=== PATIENT | female | born 1975 | race American Indian/Alaskan Native ===

== ENCOUNTER 2018-10-20 23:18 | Emergency (ER) | payer SELFPAY ==
[2018-10-20] MEDS ORDERED: ASPIRIN PO ONE (23:25)
[2018-10-20] MEDS ORDERED: MORPHINE IV ONE (23:49)
[2018-10-20] MEDS ORDERED: ZOFRAN IV ONE (23:49)
[2018-10-20 23:52] LABS: Basophils # (Auto) 0.2 K/mm3 (0.0-0.1); Eosinophils # (Auto) 0.2 K/mm3 (0.0-0.4); Eosinophils % (Auto) 1.5 % (0.0-4.3); Lymphocytes # (Auto) 3.9 K/mm3 (1.2-5.4); Mean Corpuscular HGB Conc 28 % (30-34); Monocytes # (Auto) 0.9 K/mm3 (0.0-0.8); Monocytes % (Auto) 6.2 % (0.0-7.3); Platelet Count 685 K/mm3 (140-440); Red Blood Count 4.44 M/mm3 (3.65-5.03)
[2018-10-20 23:53] LABS: Hematocrit 26.9 % (30.3-42.9); Hemoglobin 7.5 gm/dl (10.1-14.3); Mean Corpuscular Volume 61 fl (79-97)
[2018-10-20 23:55] LABS: BUN/Creatinine Ratio 14; Blood Urea Nitrogen 10 mg/dL (7-17); Calcium 9.2 mg/dL (8.4-10.2); Hemolysis Index 2
[2018-10-21] MEDS ORDERED: VASOTEC IV ONE (00:03)
--- NOTE | 2018-10-21 00:41 | XRay Report ---
CHEST 1 VIEW 11:32 PM INDICATION / CLINICAL INFORMATION: Chest Pain. COMPARISON: None available. FINDINGS: SUPPORT DEVICES: None. HEART / MEDIASTINUM: The heart size and pulmonary vasculature are normal. The aorta is normal in chand[place] abdulkadir. LUNGS / PLEURA: No significant pulmonary or pleural abnormality. No pneumothorax. ADDITIONAL FINDINGS: No significant additional findings. IMPRESSION: No acute findings. Signer Name: Obi Santos MD Signed: 10/21/2018 12:37 AM Workstation Name: [id number]
[2018-10-21] MEDS ORDERED: NORCO 5/325 PO ONE (02:06)
[2018-10-21] MEDS ORDERED: NORMODYNE IV ONE (02:07)
[2018-10-21] MEDS ORDERED: APRESOLINE IV ONE (02:26)
--- NOTE | 2018-10-21 04:41 | Emergency Department Report ---
ED Chest Pain HPI - General Chief Complaint: Chest Pain Stated Complaint: CHEST PAIN,RIGHT ARM HURTS Time Seen by Provider: 10/20/18 23:48 Source: patient Mode of arrival: Ambulatory Limitations: No Limitations - History of Present Illness Initial Comments: presents to er with mid chest pain, sharp, 3/10 for the past two days. h/o htn, chf, states bp has been running high. no sob, or diaphoresis. no exacerbating or alleviating factors. MD Complaint: chest pain -: Gradual Severity scale (0 -10): 10 - Related Data Home Medications Medication Instructions Recorded Confirmed Last Taken Albuterol Sulfate [Ventolin HFA] 2 puff IH Q4H PRN 02/28/15 02/28/15 Unknown Fluticasone (Nf) [Flovent 220 2 puff IH BID 02/28/15 02/28/15 Unknown MCG/PUFF HFA] Furosemide [Lasix TAB] 20 mg PO QDAY 02/28/15 02/28/15 Unknown clonazePAM [KlonoPIN] 2 mg PO QHS PRN 02/28/15 02/28/15 Unknown Previous Rx's Medication Instructions Recorded Last Taken Type Aspirin [Aspirin BABY CHEW TAB] 81 mg PO QDAY #30 tab.chew 03/01/15 Unknown Rx Carvedilol [Coreg] 6.25 mg PO BID #60 tablet 03/01/15 Unknown Rx Valsartan [Diovan] 80 mg PO BID #60 tablet 03/01/15 Unknown Rx amLODIPine [Norvasc] 10 mg PO QDAY #30 tablet 03/01/15 Unknown Rx Cyclobenzaprine [Flexeril] 10 mg PO QHS PRN #10 tablet 03/08/18 Unknown Rx Ibuprofen [Motrin] 600 mg PO Q8H PRN #20 tablet 03/08/18 Unknown Rx Allergies Allergy/AdvReac Type Severity Reaction Status Date / Time morphine Allergy Itching Verified 10/21/18 00:17 propoxyphene napsylate Allergy Shortness Verified 09/30/15 19:25 [From Darvocet-N 100] of Breath Heart Score - HEART Score History: Slightly suspicious EKG: Non-specific Age: < 45 Risk factors: > 3 risk factors or hx of atherosclerotic disease Troponin: < normal limit HEART Score: 3 ED Review of Systems ROS: Stated complaint: CHEST PAIN,RIGHT ARM HURTS Other details as noted in HPI Comment: All other systems reviewed and negative Respiratory: denies: cough, orthopnea Cardiovascular: chest pain Gastrointestinal: denies: abdominal pain, nausea, vomiting ED Past Medical Hx - Past Medical History Previous Medical History?: Yes Hx Hypertension: Yes Hx CVA: No Hx Heart Attack/AMI: Yes Hx Congestive Heart Failure: Yes (cardiomyopathy with EF of 30-35%) Hx Diabetes: No Hx Deep Vein Thrombosis: No Hx Pulmonary Embolism: No Hx GERD: Yes Hx Liver Disease: No Hx Renal Disease: No Hx Sickle Cell Disease: No Hx Arthritis: Yes (B/L knees) Hx Headaches / Migraines: Yes Hx Seizures: No Hx Kidney Stones: No Hx Psychiatric Treatment: No Hx Asthma: No Hx COPD: No Hx Tuberculosis: No Hx Dementia: No Hx HIV: No Additional medical history: Hypothyroidism,ANEMIA. heart irregular - Surgical History Past Surgical History?: Yes Hx Coronary Stent: No Hx Open Heart Surgery: No Hx Pacemaker: No Hx Internal Defibrillator: No Hx Cholecystectomy: Yes Hx Appendectomy: No Hx Breast Surgery: No Additional Surgical History: x 4 - Social History Smoking Status: Never Smoker Substance Use Type: None - Medications Home Medications: Home Medications Medication Instructions Recorded Confirmed Last Taken Type Albuterol Sulfate [Ventolin HFA] 2 puff IH Q4H PRN 02/28/15 02/28/15 Unknown History Fluticasone (Nf) [Flovent 220 2 puff IH BID 02/28/15 02/28/15 Unknown History MCG/PUFF HFA] Furosemide [Lasix TAB] 20 mg PO QDAY 02/28/15 02/28/15 Unknown History clonazePAM [KlonoPIN] 2 mg PO QHS PRN 02/28/15 02/28/15 Unknown History Aspirin [Aspirin BABY CHEW TAB] 81 mg PO QDAY #30 tab.chew 03/01/15 Unknown Rx Carvedilol [Coreg] 6.25 mg PO BID #60 tablet 03/01/15 Unknown Rx Valsartan [Diovan] 80 mg PO BID #60 tablet 03/01/15 Unknown Rx amLODIPine [Norvasc] 10 mg PO QDAY #30 tablet 03/01/15 Unknown Rx Cyclobenzaprine [Flexeril] 10 mg PO QHS PRN #10 tablet 03/08/18 Unknown Rx Ibuprofen [Motrin] 600 mg PO Q8H PRN #20 tablet 03/08/18 Unknown Rx ED Physical Exam - General Limitations: No Limitations General appearance: alert, in no apparent distress - Head Head exam: Present: atraumatic, normocephalic - Eye Eye exam: Present: normal appearance, PERRL, EOMI Pupils: Present: normal accommodation - ENT ENT exam: Present: normal exam, normal orophraynx - Neck Neck exam: Present: normal inspection - Respiratory Respiratory exam: Present: normal lung sounds bilaterally - Cardiovascular Cardiovascular Exam: Present: regular rate, normal rhythm - GI/Abdominal GI/Abdominal exam: Present: soft, normal bowel sounds - Back Exam Back exam: Present: normal inspection - Psychiatric Psychiatric exam: Present: normal affect - Skin Skin exam: Present: warm ED Course Vital Signs 10/20/18 10/21/18 10/21/18 23:57 00:51 01:00 Temperature 98.1 F Pulse Rate 88 78 78 Respiratory 13 15 Rate Blood Pressure 187/101 181/95 Blood Pressure 205/113 [Left] O2 Sat by Pulse 99 99 Oximetry 10/21/18 10/21/18 10/21/18 02:07 02:10 02:13 Temperature Pulse Rate 84 84 Respiratory 14 16 Rate Blood Pressure 185/107 Blood Pressure 185/107 [Left] O2 Sat by Pulse 98 Oximetry 10/21/18 10/21/18 10/21/18 02:32 03:10 05:03 Temperature 98.1 F Pulse Rate 79 83 Respiratory 16 16 Rate Blood Pressure 161/91 Blood Pressure 153/84 [Left] O2 Sat by Pulse 98 Oximetry GARY score - Gary Score Age > 65: (0) No Aspirin use within the Past 7 Days: (1) Yes 3 or more CAD Risk Factors: (1) Yes 2 or more Angina events in past 24 hrs: (1) Yes Known CAD with more than 50% Stenosis: (0) No Elevated Cardiac Markers: (0) No ST Deviation Greater than 0.5mm: (0) No GARY Score: 3 ED Medical Decision Making - Lab Data Result diagrams: 10/20/18 23:29 10/20/18 23:29 Critical care attestation.: If time is entered above; I have spent that time in minutes in the direct care of this critically ill patient, excluding procedure time. ED Disposition Clinical Impression: Chest pain, atypical Disposition: DC-01 TO HOME OR SELFCARE Is pt being admited?: No Does the pt Need Aspirin: No Condition: Stable Instructions: Chest Pain (ED) Referrals: RYAN CARLTON MD [Primary Care Provider] - 3-5 Days
[2018-10-21 05:03] VITALS: BP 153/84
== END 2018-10-21 05:05 | disposition home or self-care (01) ==
LOC: ED 23:18
DX: R07.89 Other chest pain (principal); I10 Essential (primary) hypertension; I25.2 Old myocardial infarction; Z90.49 Acquired absence of other specified parts of digestive tract; Z88.6 Allergy status to analgesic agent; Z88.8 Allergy status to other drugs, medicaments and biological substances
CPT/HCPCS: 36415; 71045; 80048; 84484; 85025; 93005; 93010; 96374; 96375; 99284; J2405; J2270

== ENCOUNTER 2019-01-05 13:39 | Emergency (ER) | payer SELFPAY ==
--- NOTE | 2019-01-05 14:25 | Event Note ---
ED Screening Note Time: 14:27 ED Screening Note: TO ER VIA EMS FOR HTN OFF BP MEDS FOR 5 DAYS A/O NAD TO TRIAGE This initial assessment/diagnostic orders/clinical plan/treatment(s) is/are subject to change based on patients health status, clinical progression and re- assessment by fellow clinical providers in the ED. Further treatment and workup at subsequent clinical providers discretion. Patient/guardian urged not to elope from the ED as their condition may be serious if not clinically assessed and managed. Initial orders include: MSE COMPLETED ORDERS PLACED
[2019-01-05 15:14] LABS: Mean Corpuscular HGB Conc 27 % (30-34); Platelet Count 383 K/mm3 (140-440); Red Blood Count 4.42 M/mm3 (3.65-5.03)
[2019-01-05 15:26] LABS: Hematocrit 26.1 % (30.3-42.9); Hemoglobin 7.1 gm/dl (10.1-14.3); Mean Corpuscular Volume 59 fl (79-97); Red Cell Distribution Width 21.2 % (13.2-15.2)
[2019-01-05 15:40] LABS: BUN/Creatinine Ratio 19; Blood Urea Nitrogen 13 mg/dL (7-17); Hemolysis Index 7
[2019-01-05 15:42] LABS: Alanine Aminotransferase < 5 units/L (7-56)
[2019-01-05] MEDS ORDERED: cloNIDine 0.2 MG TAB PO ONE (16:18)
--- NOTE | 2019-01-05 16:26 | XRay Report ---
CHEST 2 VIEWS INDICATION / CLINICAL INFORMATION: HTN. COMPARISON: Chest x-ray 10/20/2018 FINDINGS: SUPPORT DEVICES: None. HEART / MEDIASTINUM: Cardiac silhouette remains enlarged with normal pulmonary vascularity LUNGS / PLEURA: No significant pulmonary or pleural abnormality. No pneumothorax. ADDITIONAL FINDINGS: No significant additional findings. IMPRESSION: 1. Stable cardiomegaly without CHF Signer Name: Zane Snider MD Signed: 01/05/2019 4:22 PM Workstation Name: [id number]
[2019-01-05] MEDS ORDERED: HYDROcodone/ACETAMINOPHEN 5-325 MG TAB PO ONE (16:50)
--- NOTE | 2019-01-05 16:58 | Emergency Department Report ---
HPI - General Chief Complaint: High BP Time Seen by Provider: 01/05/19 14:13 - HPI HPI: Room 5 The patient is a 43-year-old female presenting with chief complaint of blurred vision chest pain and headache. The patient states she's been out of her blood pressure medication for the past 5 days. Patient states 3 days ago she had transient chest pain. Today the patient states she developed blurred vision chest pressure and right-sided headache. The patient missed a shortness of breath, nausea/vomiting and diaphoresis with her chest pain. Patient gives her pain a score of 9/10. The patient states she had a normal cardiac catheterization 2 years ago Location: [See above] Duration: [See above] Quality: [See above] Severity: [See above] Timing: [See above] Context: [See above] Modifying factors: [See above] Associated signs and symptoms: [see above] ED Past Medical Hx - Past Medical History Previous Medical History?: Yes Hx Hypertension: Yes Hx Heart Attack/AMI: Yes Hx Congestive Heart Failure: Yes (cardiomyopathy with EF of 30-35%) Hx GERD: Yes Hx Arthritis: Yes (B/L knees) Hx Headaches / Migraines: Yes Additional medical history: Hypothyroidism,ANEMIA. heart irregular - Surgical History Past Surgical History?: Yes Hx Cholecystectomy: Yes Additional Surgical History: x 4 - Family History Family history: no significant - Social History Smoking Status: Never Smoker Substance Use Type: None (denies illicit drug use) - Medications Home Medications: Home Medications Medication Instructions Recorded Confirmed Last Taken Type Albuterol Sulfate [Ventolin HFA] 2 puff IH Q4H PRN 02/28/15 02/28/15 Unknown History Fluticasone (Nf) [Flovent 220 2 puff IH BID 02/28/15 02/28/15 Unknown History MCG/PUFF HFA] clonazePAM [KlonoPIN] 2 mg PO QHS PRN 02/28/15 02/28/15 Unknown History Aspirin [Aspirin BABY CHEW TAB] 81 mg PO QDAY #30 tab.chew 03/01/15 Unknown Rx Cyclobenzaprine [Flexeril] 10 mg PO QHS PRN #10 tablet 03/08/18 Unknown Rx Ibuprofen [Motrin] 600 mg PO Q8H PRN #20 tablet 03/08/18 Unknown Rx Carvedilol [Coreg] 6.25 mg PO BID #60 tablet 11/05/19 Unknown Rx Furosemide [Lasix TAB] 20 mg PO QDAY #30 01/05/19 Unknown Rx Valsartan [Diovan] 80 mg PO BID #60 tablet 01/05/19 Unknown Rx amLODIPine 10 mg PO QDAY #30 tablet 01/05/19 Unknown Rx traMADol [Ultram] 50 mg PO Q6HR PRN #10 tablet 01/05/19 Unknown Rx ED Review of Systems ROS: Stated complaint: CHEST PAIN Other details as noted in HPI Constitutional: diaphoresis Eyes: vision change. denies: eye pain ENT: denies: throat pain Respiratory: shortness of breath Cardiovascular: chest pain Endocrine: no symptoms reported Gastrointestinal: nausea, vomiting Genitourinary: denies: dysuria Musculoskeletal: denies: back pain Neurological: headache Physical Exam - Physical Exam Vital Signs: Vital Signs 01/05/19 14:31 Temperature 98.9 F Pulse Rate 91 H Respiratory 18 Rate Blood Pressure 203/117 [Right] O2 Sat by Pulse 100 Oximetry Vital Signs 01/05/19 01/05/19 01/05/19 14:31 16:52 16:56 Temperature 98.9 F 98.1 F Pulse Rate 91 H 107 H 90 Respiratory 18 20 21 Rate Blood Pressure Blood Pressure 190/109 [Left] Blood Pressure 203/117 190/109 [Right] O2 Sat by Pulse 100 100 Oximetry 01/05/19 01/05/19 01/05/19 17:00 17:16 17:26 Temperature Pulse Rate 88 110 H 85 Respiratory 18 29 H Rate Blood Pressure 191/106 191/106 190/109 Blood Pressure [Left] Blood Pressure [Right] O2 Sat by Pulse 100 99 Oximetry 01/05/19 01/05/19 01/05/19 17:27 17:31 17:45 Temperature Pulse Rate 83 86 Respiratory 20 14 12 Rate Blood Pressure 197/108 202/115 Blood Pressure [Left] Blood Pressure [Right] O2 Sat by Pulse 100 100 Oximetry 01/05/19 01/05/19 01/05/19 18:01 18:15 18:27 Temperature Pulse Rate 79 Respiratory 18 14 20 Rate Blood Pressure 195/111 182/104 Blood Pressure [Left] Blood Pressure [Right] O2 Sat by Pulse 100 100 Oximetry 01/05/19 01/05/19 01/05/19 18:31 18:45 19:01 Temperature Pulse Rate Respiratory 12 13 13 Rate Blood Pressure 174/101 175/101 178/97 Blood Pressure [Left] Blood Pressure [Right] O2 Sat by Pulse 100 100 97 Oximetry 01/05/19 01/05/19 19:16 19:30 Temperature Pulse Rate 76 Respiratory 11 L 9 L Rate Blood Pressure 154/82 148/88 Blood Pressure [Left] Blood Pressure [Right] O2 Sat by Pulse 94 97 Oximetry Physical Exam: GENERAL: The patient is well-developed well-nourished female lying on stretcher not appearing to be in acute distress. [] HEENT: Normocephalic. Atraumatic. Extraocular motions are intact. Patient has moist mucous membranes. NECK: Supple. Trachea midline CHEST/LUNGS: Clear to auscultation. There is no respiratory distress noted. HEART/CARDIOVASCULAR: Regular. There is no tachycardia. There is no gallop rub or murmur. ABDOMEN: Abdomen is soft, nontender. Patient has normal bowel sounds. There is no abdominal distention. SKIN: There is no rash. There is no edema. There is no diaphoresis. NEURO: The patient is awake, alert, and oriented. The patient is cooperative. The patient has no focal neurologic deficits. The patient has normal speech. Cranial nerves II through XII grossly intact, no drift MUSCULOSKELETAL: There is no evidence of acute injury. ED Course Vital Signs 01/05/19 14:31 Temperature 98.9 F Pulse Rate 91 H Respiratory 18 Rate Blood Pressure 203/117 [Right] O2 Sat by Pulse 100 Oximetry - Reevaluation(s) Reevaluation #1: 01/05/19 20:03 Patient states she feels improved. Blood pressure improved ED Medical Decision Making - Lab Data Result diagrams: 01/05/19 15:01 01/05/19 15:01 Laboratory Tests 01/05/19 01/05/19 15:01 15:01 WBC 12.9 H RBC 4.42 Hgb 7.1 L Hct 26.1 L MCV 59 L MCH 16 L MCHC 27 L RDW 21.2 H Plt Count 383 Sodium 137 Potassium 3.9 Chloride 104.8 Carbon Dioxide 22 Anion Gap 14 BUN 13 Creatinine 0.7 Estimated GFR > 60 BUN/Creatinine Ratio 19 Glucose 90 Calcium 9.0 Total Bilirubin 0.30 AST 20 ALT < 5 L Alkaline Phosphatase 78 Troponin T < 0.010 Total Protein 7.8 Albumin 4.0 Albumin/Globulin Ratio 1.1 - EKG Data -: EKG Interpreted by Me EKG shows normal: sinus rhythm Rate: normal - EKG Data When compared to previous EKG there are: previous EKG unavailable Interpretation: other (no ischemic changes seen) - Radiology Data Radiology results: report reviewed (CT head, chest x-ray), image reviewed (CT head, chest x-ray) interpreted by me: Chest x-ray-no focal infiltrate, no pneumothorax [address] [address] Cat Scan Report Signed Patient: JENNIFER DALTON MR#: [id number] : 1975 Acct:[id number] Age/Sex: 43 / F ADM Date: 01/05/19 Loc: ED Attending Dr: Ordering Physician: MEMO JUAREZ MD Date of Service: 01/05/19 Procedure(s): CT head/brain wo con Accession Number(s): [id number] cc: MEMO JUAREZ MD CT head/brain wo con INDICATION / CLINICAL INFORMATION: 43 years Female; hypertension, headache. TECHNIQUE: Routine CT head without contrast. All CT scans at this location are performed using CT dose reduction for ALARA by means of automated exposure control. COMPARISON: None. FINDINGS: BRAIN / INTRACRANIAL CONTENTS: No acute hemorrhage, mass effect, midline shift, hydrocephalus, or acute, large territorial infarct. No chronic infarct or atrophy appreciated. No significant white matter abnormality. CRANIOCERVICAL JUNCTION: No significant abnormality. ORBITS: No significant abnormality of visualized orbits. SINUSES / MASTOIDS: Desiccated secretions seen in the left sphenoid sinus. ADDITIONAL FINDINGS: None. IMPRESSION: 1. No focal mass, hemorrhage, hydrocephalus, or acute, large territorial infarct. Signer Name: Krishan Catalan MD, III Signed: 01/05/2019 5:35 PM Workstation Name: [id number] Transcribed By: HR Dictated By: Krishan Catalan MD Electronically Authenticated By: Krishan Catalan MD Signed Date/Time: 01/05/191734 DD/ 33 TD/TT: [address] [address] XRay Report Signed Patient: JENNIFER DALTON MR#: [id number] : 1975 Acct:[id number] Age/Sex: 43 / F ADM Date: 01/05/19 Loc: ED Attending Dr: Ordering Physician: LIOR KEMP Date of Service: 01/05/19 Procedure(s): XR chest routine 2V Accession Number(s): [id number] cc: LIOR KEMP Fluoro Time In Minutes: CHEST 2 VIEWS INDICATION / CLINICAL INFORMATION: HTN. COMPARISON: Chest x-ray 10/20/2018 FINDINGS: SUPPORT DEVICES: None. HEART / MEDIASTINUM: Cardiac silhouette remains enlarged with normal pulmonary vascularity LUNGS / PLEURA: No significant pulmonary or pleural abnormality. No pneumothorax. ADDITIONAL FINDINGS: No significant additional findings. IMPRESSION: 1. Stable cardiomegaly without CHF Signer Name: Zane Snider MD Signed: 01/05/2019 4:22 PM Workstation Name: [id number] Transcribed By: TL Dictated By: Zane Snider MD Electronically Authenticated By: Zane Snider MD Signed Date/Time: 01/05/191621 DD/ 162 TD/TT: - Differential Diagnosis hypertensive urgency, ICH, ACS, pericarditis, GERD Critical care attestation.: If time is entered above; I have spent that time in minutes in the direct care of this critically ill patient, excluding procedure time. ED Disposition Clinical Impression: Hypertensive urgency Disposition: DC-01 TO HOME OR SELFCARE Is pt being admited?: No Does the pt Need Aspirin: No Condition: Stable Instructions: Hypertensive Crisis (ED) Additional Instructions: Return to the emergency department should you develop worsening symptoms, inability to tolerate food or liquids, high fever or any other concerns Prescriptions: amLODIPine 10 mg PO QDAY #30 tablet Carvedilol [Coreg] 6.25 mg PO BID #60 tablet Valsartan [Diovan] 80 mg PO BID #60 tablet Furosemide [Lasix TAB] 20 mg PO QDAY #30 traMADol [Ultram] 50 mg PO Q6HR PRN #10 tablet PRN Reason: Pain Referrals: RACHEL HAYNES MD [Staff Physician] - 3-5 Days Time of Disposition: 20:03
--- NOTE | 2019-01-05 17:39 | Cat Scan Report ---
CT head/brain wo con INDICATION / CLINICAL INFORMATION: 43 years Female; hypertension, headache. TECHNIQUE: Routine CT head without contrast. All CT scans at this location are performed using CT dos e reduction for ALARA by means of automated exposure control. COMPARISON: None. FINDINGS: BRAIN / INTRACRANIAL CONTENTS: No acute hemorrhage, mass effect, midline shift, hydrocephalus, or acu te, large territorial infarct. No chronic infarct or atrophy appreciated. No significant white matter abnormality. CRANIOCERVICAL JUNCTION: No significant abnormality. ORBITS: No significant abnormality of visualized orbits. SINUSES / MASTOIDS: Desiccated secretions seen in the left sphenoid sinus. ADDITIONAL FINDINGS: None. IMPRESSION: 1. No focal mass, hemorrhage, hydrocephalus, or acute, large territorial infarct. Signer Name: Krishan Catalan MD, III Signed: 01/05/2019 5:35 PM Workstation Name: [id number]
[2019-01-05] MEDS ORDERED: ONDANSETRON 4 MG ODT TAB PO ONE (19:53)
[2019-01-05 21:11] VITALS: BP 150/71
== END 2019-01-05 20:30 | disposition home or self-care (01) ==
LOC: ED 13:39
DX: I16.0 Hypertensive urgency (principal); I10 Essential (primary) hypertension; I11.0 Hypertensive heart disease with heart failure; I50.9 Heart failure, unspecified; I25.2 Old myocardial infarction; K21.9 Gastro-esophageal reflux disease without esophagitis; G43.909 Migraine, unspecified, not intractable, without status migrainosus; E03.9 Hypothyroidism, unspecified; D64.9 Anemia, unspecified; Z90.49 Acquired absence of other specified parts of digestive tract; Z79.899 Other long term (current) drug therapy; Z88.8 Allergy status to other drugs, medicaments and biological substances; Z88.5 Allergy status to narcotic agent
CPT/HCPCS: 36415; 70450; 71046; 80053; 84484; 85027; 93005; 93010; Q0162

== ENCOUNTER 2020-07-13 19:11 | Emergency (ER) | payer SELFPAY ==
[2020-07-13 21:27] LABS: Basophils # (Auto) 0.2 K/mm3 (0.0-0.1); Basophils % (Auto) 1.1 % (0.0-1.8); Eosinophils # (Auto) 0.3 K/mm3 (0.0-0.4); Eosinophils % (Auto) 2.2 % (0.0-4.3); Hematocrit 29.2 % (30.3-42.9); Hemoglobin 8.1 gm/dl (10.1-14.3); Lymphocytes # (Auto) 1.8 K/mm3 (1.2-5.4); Mean Corpuscular HGB Conc 28 % (30-34); Mean Corpuscular Volume 64 fl (79-97); Monocytes # (Auto) 0.9 K/mm3 (0.0-0.8); Monocytes % (Auto) 5.8 % (0.0-7.3); Platelet Count 771 K/mm3 (140-440); Red Blood Count 4.55 M/mm3 (3.65-5.03)
[2020-07-13 21:51] LABS: Alanine Aminotransferase 7 units/L (7-56); Albumin 3.7 g/dL (3.9-5); BUN/Creatinine Ratio 12; Blood Urea Nitrogen 12 mg/dL (7-17); Hemolysis Index 0
--- NOTE | 2020-07-13 22:36 | XRay Report ---
CHEST 2 VIEWS INDICATION / CLINICAL INFORMATION: cp. COMPARISON: 01/05/2019 FINDINGS: SUPPORT DEVICES: None. HEART / MEDIASTINUM: No significant abnormality. LUNGS / PLEURA: No significant pulmonary or pleural abnormality. No pneumothorax. ADDITIONAL FINDINGS: No significant additional findings. IMPRESSION: 1. No acute findings. Signer Name: Obi Massey MD Signed: 07/13/2020 10:31 PM Workstation Name: [id number]
--- NOTE | 2020-07-14 01:05 | Cat Scan Report ---
CT head without contrast INDICATION : RIGHT sided facial numbness. TECHNIQUE: Axial imaging performed from the skull apex through the skull base without the use of con trast. All CT scans at this location are performed using CT dose reduction for ALARA by means of aut omated exposure control. COMPARISON: None FINDINGS: Parenchyma: No mass, stroke or hemorrhage. Mild low density in the frontal regions left greater than right is greatest at the periventricular location. Ventricles: Ventricles are normal in size and appear symmetric. Soft tissues: Soft tissues including the orbits appear normal. Bones: No acute osseous abnormality. Sinuses: Sinuses and mastoid air cells are clear. IMPRESSION: 1. Mild chronic small vessel ischemic change. 2. No acute abnormality. Signer Name: Sterling Aggarwal MD Signed: 07/14/2020 1:00 AM Workstation Name: [id number]
--- NOTE | 2020-07-14 01:12 | Emergency Department Report ---
ED General Adult HPI - General Chief complaint: Headache Stated complaint: CHEST PAIN/RT FACE NUMB/HEADACHE Time Seen by Provider: 07/13/20 23:50 Source: patient Mode of arrival: Ambulatory Limitations: No Limitations - History of Present Illness Initial comments: Patient is a 45-year-old F Lao female who is presenting with elevated blood pressure. This patient has been out of her Catapres for the last 3 months. She still has been taking her losartan and Coreg. Patient states that she started having headache 2 days ago. Complains of some mild numbness to the right side of her face but she also has surgery on the side which has been also going on for the last 2 to 3 days. States her right arm did feel some heaviness earlier today but this resolved. States that only lasted a few seconds. Patient states she has off-and-on chest discomfort but denies any shortness of breath. States fever chills cough cold congestion nausea or vomiting. - Related Data Home Medications Medication Instructions Recorded Confirmed Last Taken Albuterol Sulfate [Ventolin HFA] 2 puff IH Q4H PRN 02/28/15 02/28/15 Unknown Fluticasone (Nf) [Flovent 220 2 puff IH BID 02/28/15 02/28/15 Unknown MCG/PUFF HFA] clonazePAM [KlonoPIN] 2 mg PO QHS PRN 02/28/15 02/28/15 Unknown Previous Rx's Medication Instructions Recorded Last Taken Type Aspirin [Aspirin BABY CHEW TAB] 81 mg PO QDAY #30 tab.chew 03/01/15 Unknown Rx Cyclobenzaprine [Flexeril] 10 mg PO QHS PRN #10 tablet 03/08/18 Unknown Rx Ibuprofen [Motrin] 600 mg PO Q8H PRN #20 tablet 03/08/18 Unknown Rx Furosemide [Lasix TAB] 20 mg PO QDAY #30 01/05/19 Unknown Rx Valsartan [Diovan] 80 mg PO BID #60 tablet 01/05/19 Unknown Rx amLODIPine 10 mg PO QDAY #30 tablet 01/05/19 Unknown Rx carvediloL [Coreg] 6.25 mg PO BID #60 tablet 01/05/19 Unknown Rx traMADoL [Ultram] 50 mg PO Q6HR PRN #10 tablet 01/05/19 Unknown Rx cloNIDine [Catapres] 0.1 mg PO TID #90 tablet 07/14/20 Unknown Rx Allergies Allergy/AdvReac Type Severity Reaction Status Date / Time morphine Allergy Itching Verified 10/21/18 00:17 propoxyphene napsylate Allergy Shortness Verified 09/30/15 19:25 [From Darvocet-N 100] of Breath ED Review of Systems ROS: Stated complaint: CHEST PAIN/RT FACE NUMB/HEADACHE Other details as noted in HPI Comment: All other systems reviewed and negative ED Past Medical Hx - Past Medical History Previous Medical History?: Yes Hx Hypertension: Yes Hx CVA: No Hx Heart Attack/AMI: Yes Hx Congestive Heart Failure: Yes (cardiomyopathy with EF of 30-35%) Hx Diabetes: No Hx Deep Vein Thrombosis: No Hx Pulmonary Embolism: No Hx GERD: Yes Hx Liver Disease: No Hx Renal Disease: No Hx Sickle Cell Disease: No Hx Arthritis: Yes (B/L knees) Hx Headaches / Migraines: Yes Hx Seizures: No Hx Kidney Stones: No Hx Psychiatric Treatment: No Hx Asthma: No Hx COPD: No Hx Tuberculosis: No Hx Dementia: No Hx HIV: No Additional medical history: Hypothyroidism,ANEMIA. heart irregular - Surgical History Past Surgical History?: Yes Hx Coronary Stent: No Hx Open Heart Surgery: No Hx Pacemaker: No Hx Internal Defibrillator: No Hx Cholecystectomy: Yes Hx Appendectomy: No Hx Breast Surgery: No Additional Surgical History: x 4 - Social History Smoking Status: Never Smoker Substance Use Type: None - Medications Home Medications: Home Medications Medication Instructions Recorded Confirmed Last Taken Type Albuterol Sulfate [Ventolin HFA] 2 puff IH Q4H PRN 02/28/15 02/28/15 Unknown History Fluticasone (Nf) [Flovent 220 2 puff IH BID 02/28/15 02/28/15 Unknown History MCG/PUFF HFA] clonazePAM [KlonoPIN] 2 mg PO QHS PRN 02/28/15 02/28/15 Unknown History Aspirin [Aspirin BABY CHEW TAB] 81 mg PO QDAY #30 tab.chew 03/01/15 Unknown Rx Cyclobenzaprine [Flexeril] 10 mg PO QHS PRN #10 tablet 03/08/18 Unknown Rx Ibuprofen [Motrin] 600 mg PO Q8H PRN #20 tablet 03/08/18 Unknown Rx Furosemide [Lasix TAB] 20 mg PO QDAY #30 01/05/19 Unknown Rx Valsartan [Diovan] 80 mg PO BID #60 tablet 01/05/19 Unknown Rx amLODIPine 10 mg PO QDAY #30 tablet 01/05/19 Unknown Rx carvediloL [Coreg] 6.25 mg PO BID #60 tablet 01/05/19 Unknown Rx traMADoL [Ultram] 50 mg PO Q6HR PRN #10 tablet 01/05/19 Unknown Rx cloNIDine [Catapres] 0.1 mg PO TID #90 tablet 07/14/20 Unknown Rx ED Physical Exam - General Limitations: No Limitations General appearance: alert, in no apparent distress - Head Head exam: Present: atraumatic, normocephalic - Eye Eye exam: Present: normal appearance - ENT ENT exam: Present: mucous membranes moist - Neck Neck exam: Present: normal inspection - Respiratory Respiratory exam: Present: normal lung sounds bilaterally. Absent: respiratory distress, wheezes, rales, rhonchi - Cardiovascular Cardiovascular Exam: Present: regular rate, normal rhythm, normal heart sounds. Absent: systolic murmur, diastolic murmur, rubs, gallop - GI/Abdominal GI/Abdominal exam: Present: soft, normal bowel sounds. Absent: distended, ten derness, guarding, rebound - Extremities Exam Extremities exam: Present: normal inspection - Back Exam Back exam: Present: normal inspection - Neurological Exam Neurological exam: Present: alert, oriented X3, CN II-XII intact, normal gait. Absent: motor sensory deficit - Psychiatric Psychiatric exam: Present: normal affect, normal mood - Skin Skin exam: Present: warm, dry, intact, normal color. Absent: rash ED Course Vital Signs 07/13/20 07/14/20 19:57 00:21 Temperature 98.5 F Pulse Rate 82 75 Respiratory 16 Rate Blood Pressure 206/118 236/100 O2 Sat by Pulse 100 Oximetry ED Medical Decision Making - Lab Data Result diagrams: 07/13/20 21:10 07/13/20 21:10 Labs 07/13/20 07/13/20 07/13/20 21:10 21:10 21:10 WBC 15.4 H RBC 4.55 Hgb 8.1 L Hct 29.2 L MCV 64 L MCH 18 L MCHC 28 L RDW 21.0 H Plt Count 771 H Lymph % (Auto) 12.0 L [place] % (Auto) 5.8 Eos % (Auto) 2.2 Baso % (Auto) 1.1 Lymph # (Auto) 1.8 [place] # (Auto) 0.9 H Eos # (Auto) 0.3 Baso # (Auto) 0.2 H Seg Neutrophils % 78.9 H Seg Neutrophils # 12.1 H Sodium 136 L Potassium 3.9 Chloride 100.8 Carbon Dioxide 26 Anion Gap 13 BUN 12 Creatinine 1.0 Estimated GFR > 60 BUN/Creatinine Ratio 12 Glucose 92 Calcium 9.0 Total Bilirubin 0.20 AST 16 ALT 7 Alkaline Phosphatase 103 Troponin T < 0.010 Total Protein 7.6 Albumin 3.7 L Albumin/Globulin Ratio 0.9 HCG, Quant 07/13/20 07/13/20 21:10 23:35 WBC RBC Hgb Hct MCV MCH MCHC RDW Plt Count Lymph % (Auto) [place] % (Auto) Eos % (Auto) Baso % (Auto) Lymph # (Auto) [place] # (Auto) Eos # (Auto) Baso # (Auto) Seg Neutrophils % Seg Neutrophils # Sodium Potassium Chloride Carbon Dioxide Anion Gap BUN Creatinine Estimated GFR BUN/Creatinine Ratio Glucose Calcium Total Bilirubin AST ALT Alkaline Phosphatase Troponin T < 0.010 Total Protein Albumin Albumin/Globulin Ratio HCG, Quant < 2 - EKG Data -: EKG Interpreted by Ia EKG shows normal: sinus rhythm, axis, intervals, QRS complexes, ST-T waves Rate: normal - EKG Data Interpretation: LVH - Radiology Data Patient: JENNIFER DALTON MR#: [id number] : 1975 Acct:[id number] Age/Sex: 45 / F ADM Date: 07/13/20 Loc: ED Attending Dr: Ordering Physician: CUAUHTEMOC BELL Date of Service: 07/13/20 Procedure(s): XR chest routine 2V Accession Number(s): [id number] cc: CUAUHTEMOC BELL Fluoro Time In Minutes: CHEST 2 VIEWS INDICATION / CLINICAL INFORMATION: cp. COMPARISON: 01/05/2019 FINDINGS: SUPPORT DEVICES: None. HEART / MEDIASTINUM: No significant abnormality. LUNGS / PLEURA: No significant pulmonary or pleural abnormality. No pneumothorax. ADDITIONAL FINDINGS: No significant additional findings. IMPRESSION: 1. No acute findings. Signer Name: Clarence Massey MD Signed: 07/13/2020 10:31 PM Workstation Name: [id number] Transcribed By: Dictated By: CLARENCE MASSEY III Electronically Authenticated By: CLARENCE MASSEY III Signed Date/Time: 07/13/202230 CT head showed mild microvascular dz but no acute CVA territory - Medical Decision Making Patient with NIH 0. The numbness and a brief weak episode could have been a slight TIA however symptoms happened so quickly is unlikely. Patient's blood pressure got up to 230 systolic. After labetalol she dropped to 190 systolic. Will start the patient back on the Catapres that she states was helping with her blood pressure regulation. Troponin is negative chest x-ray showed no no acute process. Because of the finding of the microvascular disease in a 45-year-old on CT patient will be given neurology for follow-up patient is stable for discharge. Critical care attestation.: If time is entered above; I have spent that time in minutes in the direct care of this critically ill patient, excluding procedure time. ED Disposition Clinical Impression: Hypertensive urgency, malignant, Atypical chest pain, Headache, Cerebral micr ovascular disease Disposition: DC-01 TO HOME OR SELFCARE Is pt being admited?: No Condition: Stable Instructions: Nonspecific Chest Pain, Adult, Preventing Hypertension Additional Instructions: Because of the elevated blood pressure chest pain and microvascular disease pl ease take a daily full-strength aspirin Prescriptions: cloNIDine [Catapres] 0.1 mg PO TID #90 tablet Referrals: BREE NAPIER MD [Referring] - 3-5 Days (for evaluation of early onset microvascular dz ) LIZA SCALES MD [Staff Physician] - 3-5 Days (for evaluation of chest discomfort and poorly controlled blood pressure) XUAN WHITAKER MD [Staff Physician] - 3-5 Days (For general internal medicine needs if you do not already have a primary care physician) Time of Disposition: 01:24 - Assessment Assessment Interval: Baseline - Level of Consciousness 1a. Level of Consciousness: alert/keenly responsive - LOC Questions 1b. LOC Questions: answers both correctly - LOC Command 1c. LOC Commands: performs tasks correctly - Best Gaze 2. Best Gaze: normal - Visual 3. Visual: no visual loss - Facial Palsy 4. Facial Palsy: normal symmetrical movement - Motor Arm 5a. Motor Arm Left: no drift 5b. Motor Arm Right: no drift - Motor Leg 6a. Motor Leg Left: no drift 6b. Motor Leg Right: no drift - Limb Ataxia 7. Limb Ataxia: absent - Sensory 8. Sensory: normal - Best Language 9. Best Language: no aphasia - Dysarthria 10. Dysarthria: normal - Extinction and Inattention 11. Extinction/Inattention: no abnormality - Scoring Total Score: 0 Stroke Severity: No Stroke Symptoms Heart Score - HEART Score History: Slightly suspicious EKG: Normal Age: 45-65 Risk factors: 1-2 risk factors Troponin: < normal limit HEART Score: 2 - EKG Read Time Time EKG Completed: 23:23 EKG Read Time: 23:25
[2020-07-14] MEDS ORDERED: HYDROcodone/ACETAMINOPHEN 5-325 MG TAB PO ONE (01:21)
[2020-07-14] MEDS ORDERED: cloNIDine 0.1 MG TAB PO ONE (01:21)
[2020-07-14 01:52] VITALS: BP 188/97
--- NOTE | 2020-07-18 17:25 | Electrocardiograph Report ---
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
== END 2020-07-14 02:01 | disposition home or self-care (01) ==
LOC: ED 19:11
DX: I11.0 Hypertensive heart disease with heart failure (principal); I16.0 Hypertensive urgency; I50.9 Heart failure, unspecified; I67.9 Cerebrovascular disease, unspecified; R07.89 Other chest pain; R51.9 Headache, unspecified; K21.9 Gastro-esophageal reflux disease without esophagitis; Z90.49 Acquired absence of other specified parts of digestive tract; Z98.890 Other specified postprocedural states; Z79.1 Long term (current) use of non-steroidal anti-inflammatories (NSAID); Z79.899 Other long term (current) drug therapy; Z88.8 Allergy status to other drugs, medicaments and biological substances
CPT/HCPCS: 36415; 70450; 71046; 80053; 84484; 84702; 85025; 93005; 96374

== ENCOUNTER 2021-05-04 14:33 | Emergency (ER) | payer OTHER ==
[2021-05-04] MEDS ORDERED: METOPROLOL TARTRATE 5 MG/5 ML INJ IV ONE (16:07)
[2021-05-04 16:34] LABS: Basophils # (Auto) 0.1 K/mm3 (0.0-0.1); Basophils % (Auto) 0.6 % (0.0-1.8); Eosinophils # (Auto) 0.3 K/mm3 (0.0-0.4); Eosinophils % (Auto) 2.3 % (0.0-4.3); Hematocrit 24.5 % (30.3-42.9); Hemoglobin 7.5 gm/dl (10.1-14.3); Lymphocytes # (Auto) 2.3 K/mm3 (1.2-5.4); Mean Corpuscular HGB Conc 31 % (30-34); Monocytes % (Auto) 7.4 % (0.0-7.3); Platelet Count 535 K/mm3 (140-440); Red Blood Count 4.15 M/mm3 (3.65-5.03)
[2021-05-04 16:35] LABS: Mean Corpuscular Volume 59 fl (79-97); Red Cell Distribution Width 21.3 % (13.2-15.2)
[2021-05-04 16:53] LABS: Alanine Aminotransferase 8 units/L (7-56); Albumin 4.1 g/dL (3.9-5); BUN/Creatinine Ratio 12; Blood Urea Nitrogen 11 mg/dL (7-17); Calcium 8.8 mg/dL (8.4-10.2); Hemolysis Index 0
[2021-05-04 17:00] LABS: INR 0.92 (0.87-1.13)
[2021-05-04 17:01] LABS: Partial Thromboplastin Time 29.3 Sec. (24.2-36.6)
--- NOTE | 2021-05-04 17:21 | XRay Report ---
CHEST 2 VIEWS INDICATION / CLINICAL INFORMATION: Chest Pain. COMPARISON: 07/13/2020 chest x-ray FINDINGS: SUPPORT DEVICES: None. HEART / MEDIASTINUM: No significant abnormality. LUNGS / PLEURA: No significant pulmonary or pleural abnormality. No pneumothorax. ADDITIONAL FINDINGS: No significant additional findings. IMPRESSION: 1. No acute findings. Signer Name: Caleb De Los Santos MD Signed: 05/04/2021 5:17 PM Workstation Name: [id number]
[2021-05-04] MEDS ORDERED: cloNIDine 0.2 MG TAB PO ONE (19:47)
--- NOTE | 2021-05-04 21:21 | Emergency Department Report ---
ED Chest Pain HPI - General Chief Complaint: Chest Pain Stated Complaint: CHEST PAIN Time Seen by Provider: 05/04/21 16:01 Source: patient Mode of arrival: Ambulatory Limitations: No Limitations - History of Present Illness Initial Comments: chest pain for 2 days , middle of chest pt has history fo heart probelms but doesn;t take mds because of insurance problems , but now she got insurance, no SOB , no nausea or diziness , asprin and nitro gien Complaint: chest pain -: days(s) Onset: during rest Pain Location: left chest Pain Radiation: none Severity scale (0 -10): 3 Quality: sharp Consistency: intermittent Improves With: nothing re: denies: nausea, vomting, diaphoresis - Related Data On Oral Contraceptives: No Home Medications Medication Instructions Recorded Confirmed Last Taken Albuterol Sulfate [Ventolin HFA] 2 puff IH Q4H PRN 02/28/15 02/28/15 Unknown Fluticasone (Nf) [Flovent 220 2 puff IH BID 02/28/15 02/28/15 Unknown MCG/PUFF HFA] clonazePAM [KlonoPIN] 2 mg PO QHS PRN 02/28/15 02/28/15 Unknown Previous Rx's Medication Instructions Recorded Last Taken Type Aspirin [Aspirin BABY CHEW TAB] 81 mg PO QDAY #30 tab.chew 03/01/15 Unknown Rx Cyclobenzaprine [Flexeril] 10 mg PO QHS PRN #10 tablet 03/08/18 Unknown Rx Ibuprofen [Motrin] 600 mg PO Q8H PRN #20 tablet 03/08/18 Unknown Rx Furosemide [Lasix TAB] 20 mg PO QDAY #30 01/05/19 Unknown Rx Valsartan [Diovan] 80 mg PO BID #60 tablet 01/05/19 Unknown Rx amLODIPine 10 mg PO QDAY #30 tablet 01/05/19 Unknown Rx carvediloL [Coreg] 6.25 mg PO BID #60 tablet 01/05/19 Unknown Rx traMADoL [Ultram] 50 mg PO Q6HR PRN #10 tablet 01/05/19 Unknown Rx cloNIDine [Catapres] 0.1 mg PO TID #90 tablet 07/14/20 Unknown Rx Valsartan [Diovan] 40 mg PO DAILY #30 05/04/21 Unknown Rx carvediloL [Coreg] 6.25 mg PO BID #60 tablet 05/04/21 Unknown Rx Allergies Allergy/AdvReac Type Severity Reaction Status Date / Time morphine Allergy Itching Verified 10/21/18 00:17 propoxyphene napsylate Allergy Shortness Verified 09/30/15 19:25 [From Darvocet-N 100] of Breath Heart Score - HEART Score History: Slightly suspicious EKG: Non-specific Age: 45-65 Risk factors: 1-2 risk factors Troponin: < normal limit HEART Score: 3 - EKG Read Time Time EKG Completed: 21:21 EKG Read Time: 21:23 - Critical Actions Critical Actions: 0-3 pts:0.9-1.7%risk of adverse cardiac event.Candidate for discharge ED Review of Systems ROS: Stated complaint: CHEST PAIN Other details as noted in HPI Constitutional: denies: chills, fever Eyes: denies: eye pain, eye discharge, vision change ENT: denies: ear pain, throat pain Respiratory: denies: cough, shortness of breath, wheezing Cardiovascular: denies: chest pain, palpitations Endocrine: no symptoms reported Gastrointestinal: denies: abdominal pain, nausea, diarrhea Genitourinary: denies: urgency, dysuria, discharge Musculoskeletal: denies: back pain, joint swelling, arthralgia Skin: denies: rash, lesions Neurological: denies: headache, weakness, paresthesias Psychiatric: denies: anxiety, depression Hematological/Lymphatic: denies: easy bleeding, easy bruising ED Past Medical Hx - Past Medical History Hx Hypertension: Yes Hx CVA: No Hx Heart Attack/AMI: Yes Hx Congestive Heart Failure: Yes (cardiomyopathy with EF of 30-35%) Hx Diabetes: No Hx Deep Vein Thrombosis: No Hx Pulmonary Embolism: No Hx GERD: Yes Hx Liver Disease: No Hx Renal Disease: No Hx Sickle Cell Disease: No Hx Arthritis: Yes (B/L knees) Hx Headaches / Migraines: Yes Hx Seizures: No Hx Kidney Stones: No Hx Psychiatric Treatment: No Hx Asthma: No Hx COPD: No Hx Tuberculosis: No Hx Dementia: No Hx HIV: No Additional medical history: Hypothyroidism,ANEMIA. heart irregular - Surgical History Hx Coronary Stent: No Hx Open Heart Surgery: No Hx Pacemaker: No Hx Internal Defibrillator: No Hx Cholecystectomy: Yes Hx Appendectomy: No Hx Breast Surgery: No Additional Surgical History: x 4 - Social History Smoking Status: Never Smoker - Medications Home Medications: Home Medications Medication Instructions Recorded Confirmed Last Taken Type Albuterol Sulfate [Ventolin HFA] 2 puff IH Q4H PRN 02/28/15 02/28/15 Unknown History Fluticasone (Nf) [Flovent 220 2 puff IH BID 02/28/15 02/28/15 Unknown History MCG/PUFF HFA] clonazePAM [KlonoPIN] 2 mg PO QHS PRN 02/28/15 02/28/15 Unknown History Aspirin [Aspirin BABY CHEW TAB] 81 mg PO QDAY #30 tab.chew 03/01/15 Unknown Rx Cyclobenzaprine [Flexeril] 10 mg PO QHS PRN #10 tablet 03/08/18 Unknown Rx Ibuprofen [Motrin] 600 mg PO Q8H PRN #20 tablet 03/08/18 Unknown Rx Furosemide [Lasix TAB] 20 mg PO QDAY #30 01/05/19 Unknown Rx Valsartan [Diovan] 80 mg PO BID #60 tablet 01/05/19 Unknown Rx amLODIPine 10 mg PO QDAY #30 tablet 01/05/19 Unknown Rx carvediloL [Coreg] 6.25 mg PO BID #60 tablet 01/05/19 Unknown Rx traMADoL [Ultram] 50 mg PO Q6HR PRN #10 tablet 01/05/19 Unknown Rx cloNIDine [Catapres] 0.1 mg PO TID #90 tablet 07/14/20 Unknown Rx Valsartan [Diovan] 40 mg PO DAILY #30 05/04/21 Unknown Rx carvediloL [Coreg] 6.25 mg PO BID #60 tablet 05/04/21 Unknown Rx ED Physical Exam - General Limitations: No Limitations General appearance: alert, in no apparent distress - Head Head exam: Present: atraumatic, normocephalic - Eye Eye exam: Present: normal appearance - ENT ENT exam: Present: mucous membranes moist - Neck Neck exam: Present: normal inspection - Respiratory Respiratory exam: Present: normal lung sounds bilaterally. Absent: respiratory distress - Cardiovascular Cardiovascular Exam: Present: regular rate, normal rhythm. Absent: systolic murmur, diastolic murmur, rubs, gallop - GI/Abdominal GI/Abdominal exam: Present: soft, normal bowel sounds - Extremities Exam Extremities exam: Present: normal inspection - Back Exam Back exam: Present: normal inspection - Neurological Exam Neurological exam: Present: alert, oriented X3 - Psychiatric Psychiatric exam: Present: normal affect, normal mood - Skin Skin exam: Present: warm, dry, intact, normal color. Absent: rash ED Course Vital Signs 05/04/21 05/04/21 05/04/21 15:45 15:59 16:00 Temperature 99.2 F Pulse Rate 105 H Respiratory 18 Rate Blood Pressure 233/132 233/132 Blood Pressure 232/134 [Right] O2 Sat by Pulse 100 100 Oximetry 05/04/21 05/04/21 05/04/21 16:16 16:20 16:28 Temperature Pulse Rate 94 H 99 H Respiratory 18 Rate Blood Pressure 216/115 216/115 Blood Pressure [Right] O2 Sat by Pulse 100 99 Oximetry 05/04/21 05/04/21 05/04/21 16:30 16:46 17:00 Temperature Pulse Rate 86 82 85 Respiratory 19 17 13 Rate Blood Pressure 217/116 200/105 209/107 Blood Pressure [Right] O2 Sat by Pulse 99 100 100 Oximetry 05/04/21 05/04/21 05/04/21 17:20 17:30 17:46 Temperature Pulse Rate 110 H 89 92 H Respiratory 19 19 18 Rate Blood Pressure 209/107 224/118 224/118 Blood Pressure [Right] O2 Sat by Pulse 99 100 100 Oximetry 05/04/21 05/04/21 05/04/21 18:00 18:16 18:30 Temperature Pulse Rate 90 86 87 Respiratory 20 16 18 Rate Blood Pressure 224/118 224/118 224/118 Blood Pressure [Right] O2 Sat by Pulse 100 100 Oximetry 05/04/21 05/04/21 05/04/21 18:33 18:46 19:00 Temperature Pulse Rate 87 85 79 Respiratory 17 19 Rate Blood Pressure 224/118 224/118 224/118 Blood Pressure [Right] O2 Sat by Pulse 100 99 Oximetry 05/04/21 05/04/21 05/04/21 19:16 19:30 19:38 Temperature 98.7 F Pulse Rate 81 87 85 Respiratory 18 20 14 Rate Blood Pressure 218/108 218/108 Blood Pressure 218/108 [Right] O2 Sat by Pulse 100 99 100 Oximetry 05/04/21 05/04/21 05/04/21 19:45 19:46 19:51 Temperature Pulse Rate 83 82 Respiratory 17 Rate Blood Pressure 218/108 218/108 Blood Pressure [Right] O2 Sat by Pulse 100 100 Oximetry 05/04/21 05/04/21 05/04/21 20:00 20:16 20:30 Temperature Pulse Rate 81 77 82 Respiratory 17 17 16 Rate Blood Pressure 191/88 181/88 158/79 Blood Pressure [Right] O2 Sat by Pulse 100 99 100 Oximetry 05/04/21 20:46 Temperature Pulse Rate 89 Respiratory 18 Rate Blood Pressure 143/78 Blood Pressure [Right] O2 Sat by Pulse 99 Oximetry - Reevaluation(s) Reevaluation #1: 05/04/21 21:20 work up neg , x ray clear , trop negative times 2 4 hours apart, BP controlled with clonidine and lopressor and labetaolol , will refer to card , refillled her BP meds GARY score - Gayr Score Age > 65: (0) No Aspirin use within the Past 7 Days: (1) Yes 3 or more CAD Risk Factors: (1) Yes 2 or more Angina events in past 24 hrs: (1) Yes Known CAD with more than 50% Stenosis: (0) No Elevated Cardiac Markers: (0) No ST Deviation Greater than 0.5mm: (0) No GARY Score: 3 ED Medical Decision Making - Lab Data Result diagrams: 05/04/21 16:03 05/04/21 16:03 Critical care attestation.: If time is entered above; I have spent that time in minutes in the direct care of this critically ill patient, excluding procedure time. ED Disposition Clinical Impression: Chest pain, Uncontrolled hypertension Disposition: 01 HOME / SELF CARE / HOMELESS Is pt being admited?: No Does the pt Need Aspirin: No Condition: Stable Instructions: Nonspecific Chest Pain, Adult, Hypertension (ED), Nonspecific Chest Pain, Adult, [id number] Referrals: XUAN WHITAKER MD [Primary Care Provider] - 3-5 Days MCKENZIE NOBLE MD [Staff Physician] - 3-5 Days
[2021-05-04 21:49] VITALS: BP 145/79
--- NOTE | 2021-05-06 11:45 | Electrocardiograph Report ---
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
== END 2021-05-04 21:49 | disposition home or self-care (01) ==
LOC: ED 14:33
DX: R07.89 Other chest pain (principal); I10 Essential (primary) hypertension; G43.909 Migraine, unspecified, not intractable, without status migrainosus; Z88.5 Allergy status to narcotic agent; Z88.8 Allergy status to other drugs, medicaments and biological substances
CPT/HCPCS: 36415; 71046; 80053; 82550; 83735; 83880; 84484; 84703; 85025; 85610; 85730; 93005; 93010; 96374; 96375; 99284; J3490; J9280